=== PATIENT | female | born 1970 | race Caucasian/White ===

== ENCOUNTER 2017-11-02 21:23 | Emergency (ER) | payer MEDICAID ==
[~2017-11-02] VITALS: Ht 167.6 cm; Wt 117.9 kg
--- NOTE | 2017-11-02 21:27 | NUR ---
FIDELINA [address]81 FR HOME FOR RT INGUINAL HERNIA PAIN X SEVERAL WKS, NO N/V/D LBM X FEW DAYS AGO
[2017-11-02] MEDS ORDERED: HYDROMORPHONE INJ 2 MG/ML DISP.SYRIN IV ONE (22:00)
[2017-11-02] MEDS ORDERED: DIAZEPAM 5 MG/ML 2 ML DISP.SYRIN IV ONE (22:00)
[2017-11-02] MEDS ORDERED: ONDANSETRON HCL/PF 4 MG/2 ML VIAL IVP ONE (22:00)
[2017-11-02] MEDS ORDERED: IV NS 0.9% 1,000 ML BAG IV ONE (22:00)
[2017-11-02] MEDS ORDERED: ONDANSETRON HCL/PF 4 MG/2 ML VIAL ONE (22:10)
[2017-11-02] MEDS ORDERED: HYDROMORPHONE 1 MG/1 ML DISP.SYRIN ONE (22:11)
[2017-11-02] MEDS ORDERED: LORAZEPAM INJ 2 MG/ML VIAL ONE (22:26)
[2017-11-02] MEDS ORDERED: LORAZEPAM INJ 2 MG/ML VIAL IV ONE (22:30)
[2017-11-02 23:00] LABS: INR 1.09 (0.87-1.13); PROTHROMBIN TIME 11.3 SECS (9.5-12.7)
[2017-11-02 23:02] LABS: CALCIUM, SERUM 9.4 mg/dL (8.5-10.1); CARBON DIOXIDE 32 mmol/L (21-32); CHLORIDE 99 mmol/L (98-107); CREATININE 0.7 mg/dL (0.6-1.3); GLUCOSE 130 mg/dL (74-106); POTASSIUM 4.5 mmol/L (3.5-5.1); SODIUM SERUM 138 mmol/L (136-145); UREA NITROGEN, BLOOD 13 mg/dL (7-18)
[2017-11-02 23:03] LABS: ALANINE AMINOTRANSFERASE 15 U/L (12-78); ALBUMIN 2.5 g/dL (3.4-5.0); ALKALINE PHOSPHATASE 89 U/L (46-116); ASPARTATE AMINOTRANSFERASE 26 U/L (15-37); BILIRUBIN,DIRECT 0.1 mg/dL (0.0-0.2); BILIRUBIN,TOTAL 0.5 mg/dL (0.2-1.0); LIPASE 104 U/L (73-393); TOTAL PROTEIN, SERUM 8.9 g/dL (6.4-8.2)
[2017-11-02 23:04] LABS: BASOPHILS % (AUTO) 0.4 % (0.0-2.0); EOSINOPHILS # (AUTO) 0.1 /CMM (0.0-0.7); EOSINOPHILS % (AUTO) 0.8 % (0.0-6.0); HEMATOCRIT 29 % (33-45); HEMOGLOBIN 10.4 g/dL (11.5-14.8); LYMPHOCYTES # (AUTO) 1.6 /CMM (0.8-4.8); LYMPHOCYTES % (AUTO) 14.9 % (20.0-44.0); MEAN CORPUSCULAR HEMOGLOBIN 34 PG (26.0-33.0); MEAN CORPUSCULAR HGB CONC 36 g/dl (31.0-36.0); MEAN CORPUSCULAR VOLUME 94 fL (82-100); MONOCYTES # (AUTO) 0.9 /CMM (0.1-1.30); NEUTROPHILS # (AUTO) 7.8 /CMM (1.8-8.9); NEUTROPHILS % (AUTO) 74.9 % (43.0-81.0); PLATELET COUNT (AUTO) 276 /CMM (150-450); RDW COEFFICIENT OF VARIATION 14.3 (11.5-15.0); RED BLOOD CELL COUNT(AUTO) 3.06 MIL/uL (4.0-5.2); WHITE BLOOD COUNT (AUTO) 10.4 K/uL (4.3-11.0)
[2017-11-02 23:27] LABS: BILIRUBIN,URINE NEGATIVE (NEGATIVE); BLOOD, URINE NEGATIVE Ery/uL (NEGATIVE); COLOR,URINE DARK YELLOW (YELLOW); KETONES,URINE NEGATIVE (NEGATIVE); LEUKOCYTE ESTERASE ,URINE NEGATIVE (NEGATIVE); NITRITE, URINE NEGATIVE (NEGATIVE); PROTEIN,URINE TRACE mg/dl (NEGATIVE); UGLUCOSE NEGATIVE (NEGATIVE); UROBILINOGEN,URINE 0.2 EU/dL (0.2)
[2017-11-02 23:28] LABS: APPEARANCE,URINE CLEAR (CLEAR)
[2017-11-02 23:32] LABS: BACTERIA,URINE Moderate /HPF (None Seen); RBC,URINE 0-2 /HPF (0-2); SQUAMOUS EPITHELIAL CELL,UR Moderate /HPF (None Seen)
[2017-11-02] MEDS ORDERED: IV NS 0.9% 250 ML IV ONE (23:33)
[2017-11-02] MEDS ORDERED: CT SWABBABLE VALVE TRANS SET 1 EA INFUS.SET MC ONE (23:33)
[2017-11-02] MEDS ORDERED: IOHEXOL-300 100 ML VIAL IV ONE (23:33)
--- NOTE | 2017-11-02 23:41 | NUR ---
PT TAKEN TO CT
--- NOTE | 2017-11-03 00:52 | NUR ---
IV removed. Catheter intact and site benign. Pressure and 4x4 applied to site. No bleeding noted.
--- NOTE | 2017-11-03 00:53 | NUR ---
Patient discharged to home in stable condition. Written and verbal after care instructions given. Patient verbalizes understanding of instruction.
[2017-11-03 01:00] VITALS: BP 105/52
== END 2017-11-03 01:02 | disposition home or self-care (01) ==
LOC: ER 21:24
DX: K45.8 Other specified abdominal hernia without obstruction or gangrene (principal); Z85.118 Personal history of other malignant neoplasm of bronchus and lung; Z88.1 Allergy status to other antibiotic agents; Z88.5 Allergy status to narcotic agent; Z88.6 Allergy status to analgesic agent
CPT/HCPCS: 36415; 80048-TC; 80076-TC; 81000-TC; 83605-TC; 83690-TC; 84703-TC; 85025-TC; 85730-TC; 87086-TC; A4606; J1170; J2060; J2405; J7030; J7050; Q9967; Z7610